=== PATIENT | female | born 1950 | race Caucasian/White ===

== ENCOUNTER 2017-11-28 15:46 | Emergency (ER) | payer OTHER ==
[2017-11-28] MEDS: LORAZEPAM 2 MG INJ IV (16:35)
[2017-11-28] MEDS: LABETALOL HCL 20MG INJ IV (16:36)
[2017-11-28 16:38] LABS: ADD MAN DIFF? NO
[2017-11-28 16:40] LABS: BASOPHIL # 0.1 10^3/ul (0.0-0.1); BASOPHILS % 0.5 % (0.0-2.0); EOSINOPHILS # 0.2 10^3/ul (0.0-0.5); EOSINOPHILS % 2.2 % (0.0-7.0); HEMATOCRIT 35.5 % (37.0-47.0); HEMOGLOBIN 11.8 g/dl (12.0-16.0); LYMPHOCYTES # 3.7 10^3/ul (0.8-2.9); MEAN CORPUSCULAR HGB CONC 33.2 g/dl (32.0-37.0); MEAN CORPUSCULAR VOLUME 84.1 fl (82.0-101.0); MONOCYTE # 0.6 10^3/ul (0.3-0.9); MONOCYTES % 6.9 % (0.0-11.0); NEUTROPHIL # 4.6 10^3/ul (1.6-7.5); NEUTROPHILS % 50.3 % (39.0-77.0); PLATELET COUNT 300 10^3/UL (140-415); RED BLOOD COUNT 4.22 10^6/ul (4.20-5.40); RED CELL DISTRIBUTION WIDTH 14.6 % (11.5-14.5)
[2017-11-28 16:40] LABS: WHITE BLOOD COUNT 9.2 10^3/ul (4.8-10.8)
[2017-11-28 17:01] LABS: PROTIME 12.2 Sec (11.9-14.9)
[2017-11-28 17:02] LABS: PARTIAL THROMBOPLASTIN TIME 25.4 Sec (25.0-35.0)
[2017-11-28 17:04] LABS: ANION GAP 16 (8-16); BLOOD UREA NITROGEN 19 mg/dl (7-20); CALCIUM 9.6 mg/dl (8.4-10.2); CARBON DIOXIDE 28 mmol/L (21-31); CHLORIDE 101 mmol/L (97-110); CREATININE 0.78 mg/dl (0.44-1.00); GLUCOSE 102 mg/dl (70-220); SODIUM 141 mmol/L (135-144)
[2017-11-28 17:19] LABS: TROPONIN-I < 0.012 ng/ml (0.00-0.12)
== END 2017-11-28 17:40 | disposition home or self-care (01) ==
LOC: E/R 15:46
DX: I10 Essential (primary) hypertension (principal); R51 Headache; R07.9 Chest pain, unspecified
CPT/HCPCS: 36415; 70450; 80048; 84484; 85025; 85610; 85730; 96374; 96375; 99285-25

== ENCOUNTER 2018-03-08 17:47 | Emergency (ER) | payer OTHER ==
[2018-03-08] MEDS: IBUPROFEN 600 MG TAB PO (20:31)
[2018-03-08] MEDS: LIDOCAINE 1% (MDV) 10 ML INJ INFIL (20:31)
== END 2018-03-08 20:48 | disposition home or self-care (01) ==
LOC: FTE 17:47
DX: L60.0 Ingrowing nail (principal); E11.9 Type 2 diabetes mellitus without complications
CPT/HCPCS: 11765; 99283-25

== ENCOUNTER 2018-04-25 12:56 | Emergency (ER) | payer OTHER ==
[2018-04-25 13:57] LABS: ADD UMIC YES; UR ASCORBIC ACID NEGATIVE (NEGATIVE); UR BACTERIA FEW /HPF (NONE SEEN); UR BILIRUBIN (Dip) NEGATIVE (NEGATIVE); UR BLOOD (Dip) NEGATIVE (NEGATIVE); UR CLARITY CLEAR (CLEAR); UR COLOR YELLOW (YELLOW); UR GLUCOSE (Dip) NEGATIVE (NEGATIVE); UR KETONES (Dip) NEGATIVE (NEGATIVE); UR LEUKOCYTE ESTERASE (Dip) 2+ Leu/ul (NEGATIVE); UR MUCUS FEW /HPF (NONE SEEN); UR NITRITE (Dip) NEGATIVE (NEGATIVE); UR RBC 4 /HPF (0-5); UR SPECIFIC GRAVITY (Dip) 1.013 (1.003-1.030); UR TOTAL PROTEIN (Dip) NEGATIVE (NEGATIVE); UR UROBILINOGEN (Dip) NEGATIVE (NEGATIVE); UR WBC 21 /HPF (0-5)
[2018-04-25] MEDS: LIDOCAINE 1% (MDV) 20 ML INJ INFIL (14:45)
[2018-04-25] MEDS: CEFTRIAXONE 1 GM INJ IM (14:45)
[2018-04-25] MEDS: LIDOCAINE 1% (MDV) 10 ML INJ INFIL (14:46)
== END 2018-04-25 14:48 | disposition home or self-care (01) ==
LOC: FTE 12:56
DX: N30.90 Cystitis, unspecified without hematuria (principal)
CPT/HCPCS: 81001; 87086; 87210; 96372; 99284-25

== ENCOUNTER 2018-05-04 17:17 | Emergency (ER) | payer OTHER ==
[2018-05-04 19:27] LABS: URINE PH (Dip) POC 5.5 (5.0-8.5)
[2018-05-04 19:27] LABS: URINE BLOOD (Dip) POC Trace-intact (NEGATIVE); URINE GLUCOSE (Dip) POC Negative (NEGATIVE); URINE KETONES (Dip) POC Negative (NEGATIVE); URINE LEUKOCYTE EST (Dip) POC Trace (NEGATIVE); URINE NITRITE (Dip) POC Negative (NEGATIVE); URINE TOTAL PROTEIN POC Negative (NEGATIVE)
[2018-05-04 19:43] LABS: ADD UMIC YES; UR ASCORBIC ACID NEGATIVE (NEGATIVE); UR BACTERIA FEW /HPF (NONE SEEN); UR BILIRUBIN (Dip) NEGATIVE (NEGATIVE); UR BLOOD (Dip) NEGATIVE (NEGATIVE); UR CLARITY CLEAR (CLEAR); UR COLOR STRAW (YELLOW); UR GLUCOSE (Dip) NEGATIVE (NEGATIVE); UR KETONES (Dip) NEGATIVE (NEGATIVE); UR LEUKOCYTE ESTERASE (Dip) TRACE Leu/ul (NEGATIVE); UR NITRITE (Dip) NEGATIVE (NEGATIVE); UR RBC 1 /HPF (0-5); UR SPECIFIC GRAVITY (Dip) 1.006 (1.003-1.030); UR TOTAL PROTEIN (Dip) NEGATIVE (NEGATIVE); UR UROBILINOGEN (Dip) NEGATIVE (NEGATIVE); UR WBC 7 /HPF (0-5)
== END 2018-05-04 20:48 | disposition home or self-care (01) ==
LOC: FTE 17:17
DX: N89.8 Other specified noninflammatory disorders of vagina (principal)
CPT/HCPCS: 81001; 81003; 99284